=== PATIENT | female | born 1960 | race Caucasian/White ===

== ENCOUNTER → 2023-06-17 11:29 | Outpatient (REF) | payer BC, SELFPAY | LOC: RAD 11:29 | PROVIDERS: ATTENDING PHYSICIAN Obstetrics & Gynecology; FAMILY PHYSICIAN Family Medicine | DX: R19.00 Intra-abdominal and pelvic swelling, mass and lump, unspecified site (principal) | CPT/HCPCS: 76830; 76856 ==

== ENCOUNTER → 2025-05-11 08:36 | Outpatient (REF) | payer BC, SELFPAY | LOC: HWWDC 08:36 | PROVIDERS: ATTENDING PHYSICIAN Family Medicine | DX: Z12.31 Encounter for screening mammogram for malignant neoplasm of breast (principal) | CPT/HCPCS: 77063; 77067 ==